=== PATIENT | female | born 1960 | race Caucasian/White ===

== ENCOUNTER 2018-08-21 21:52 | Emergency (ER) | payer BC ==
[~2018-08-21] VITALS: Ht 177.8 cm; Wt 143.8 kg
[~2018-08-21 21:52] MED LIST: ASPIRIN81 MG PO; ATORVASTATIN CA20 MG PO; BENICAR HCT 201 EACH PO; CYCLOBENZAPRINE5 MG PO; FARXIGA PO; GLUMETZA1000 MG PO; LANTUS100 UNITS/ SC; LEVAQUIN500 MG PO; TYLENOL # 31 EA PO; ULTRAM 50MG50 MG PO; VITAMIN D-32000 UNIT PO; ZOFRAN ODT4 MG SL; [UNRECOGNIZED DRUG - OTHER] PO; [UNRECOGNIZED DRUG - OTHER] PO; [UNRECOGNIZED DRUG - OTHER] PO
--- OUTSIDE RECORDS SUMMARY | 2018-08-21 21:55 | XMS REPORT | Continuity of Care Document ---
Author Author [facility] Interface Address Unknown Phone Unavailable Problems Problem Status Onset Date Classification Date Reported Comments Source Medications Medication Details Route Status Patient Instructions Ordering Provider Order Date Source Allergies, Adverse Reactions, Alerts Substance Category Reaction Severity Reaction type Status Date Reported Comments Source Immunizations Immunization Date Given Site Status Last Updated Comments Source Results Order Name Results Value Reference Range Date Interpretation Comments Source Vital Signs Vital Sign Value Date Comments Source Encounters Location Location Details Encounter Type Encounter Number Reason For Visit Attending Provider ADM Date DC Date Status Source Outpatient [id number] CATINA MEJÍA 03/18/2017 Active [facility] Outpatient [id number] MARK MARKS 04/29/2017 Active [facility] Procedures Procedure Code Date Perfomer Comments Source
== END 2018-08-22 00:57 | disposition home or self-care (01) ==
LOC: ER 21:52
DX: E11.649 Type 2 diabetes mellitus with hypoglycemia without coma (principal); E11.40 Type 2 diabetes mellitus with diabetic neuropathy, unspecified; I10 Essential (primary) hypertension; E78.5 Hyperlipidemia, unspecified
CPT/HCPCS: 36415; 82948; 99282